=== PATIENT | female | born 1995 | race Caucasian/White ===

== ENCOUNTER 2017-03-13 18:08 | Emergency (ER) | payer BC ==
--- NOTE | 2017-03-13 18:31 | Emergency Department Record ---
History of Present Illness - General Chief complaint: Swelling of legs Stated complaint: SWELLING IN LEG Time Seen by Provider: 03/13/17 18:20 Source: Patient Mode of Arrival: Ambulatory Limitations: No limitations - History of Present Illness Initial comments: The patient is here due to developing R lower leg swelling and tingling yesterday that has mainly resolved with elevating the leg last night. She has had some abrasions to the dorsal foot due to working on a camper renovation recently. Today she has had some tingling and fullness to her R arm from the shoulder down but that also is now improving. There has been no weakness, fever , CP, SOB, LINDA, chills, AP, vomiting, or diarrhea. The patient has no recent travel and no risk factors for DVT. MD Complaint: Extremity swelling Onset/Timin -: Days(s) Location: Right, Arm, Lower Leg History of Same: No Radiation: None Quality: Burning Consistency: Intermittent Improves with: Elevation Worsens with: Walking, Weight bearing Associated Symptoms: Denies other symptoms - Related Data Previous Rx's Medication Instructions Recorded Naproxen [Naprosyn] 250 mg PO BID #14 tablet 03/13/17 Allergies Allergy/AdvReac Type Severity Reaction Status Date / Time No Known Drug Allergies Allergy Verified 03/13/17 18:19 Travel Screening - Travel/Exposure Within Last 30 Days Have you traveled within the last 30 days?: No Review of Systems Constitutional: Denies: Chills, Fever Eyes: Denies: Eye discharge ENT: Denies: Congestion Respiratory: Denies: Cough, Dyspnea Past Medical History - SOCIAL HISTORY Smoking Status: Never smoker Alcohol Use: None Drug Use: None - RESPIRATORY Hx Respiratory Disorders: No - CARDIOVASCULAR Hx Cardio Disorders: No - NEURO Hx Neuro Disorders: No - GI Hx GI Disorders: No - Hx Genitourinary Disorders: No - ENDOCRINE Hx Endocrine Disorders: No - MUSCULOSKELETAL Hx Musculoskeletal Disorders: No - PSYCH Hx Psych Problems: No - HEMATOLOGY/ONCOLOGY Hx Hematology/Oncology Disorders: No Family Medical History Any Significant Family History?: No Physical Exam - General General Appearance: Alert, Oriented x3, Cooperative, No acute distress - Head Head exam: Atraumatic, Normocephalic, Normal inspection - Eye Eye exam: Normal appearance, PERRL - ENT Throat exam: Normal inspection. negative: Tonsillar erythema, Tonsillar exudate - Neck Neck exam: Normal inspection, Full ROM. negative: Tenderness - Respiratory Respiratory exam: Normal lung sounds bilaterally. negative: Respiratory distress - Cardiovascular Cardiovascular Exam: Regular rate, Normal rhythm, Normal heart sounds - GI/Abdominal GI/Abdominal exam: Soft, Normal bowel sounds. negative: Tenderness - Extremities Extremities exam: Full ROM, Normal capillary refill, Tenderness (There is some tenderness to the R shoulder and proximal humerus laterally but no arm swelling , bruising, or erythema is appreciated.), Other (There is no arm or leg edema or erythema appreciated. The PT and DP pulses to the lower legs are normal and 2 + and equal bilaterally.). negative: Normal inspection (There are a few abrasions to the dorsal foot with trace edema to the R foot only. There is no swelling to the R leg.), Calf tenderness (There is no calf or anterior thigh tenderness.), Joint swelling, Pedal edema - Back Back exam: Reports: Normal inspection - Neurological Neurological exam: Alert, Normal gait, Oriented X3, Reflexes normal. negative: Abnormal gait, Altered, Motor sensory deficit (Motor and Sensory are 5/5 upper and lower extremities.) - Skin Skin exam: negative: Petechiae, Rash Course Vital Signs 03/13/17 18:15 Temperature 98.4 F Pulse Rate 90 Respiratory 16 Rate Blood Pressure 149/97 Pulse Ox 100 - Reevaluation(s) Reevaluation #1: After an hour in the ED the patient began to develop increasing R leg pain. The patient is mainly over the posterior thigh and does travel down the back of the leg. There is no back pain, weakness, or swelling. The patient and family are very concerned about a blood clot even though the patient has no risk factors for it. We will pursue a leg doppler. 03/13/17 20:00 03/13/17 21:15 Reevaluation #2: We did try to have the patient go to [facility] for an outpatient doppler test but have been getting a slight amount of resistance due to the tech at [facility] being very busy. Due to that fact we will treat the patient with a single dose of Lovenox and have her return to the ER at 8AM tomorrow morning for the Doppler test. 03/13/17 20:35 Medical Decision Making - Data Complexity MDM Data: Labs Ordered and/or Reviewed - Lab Data Result diagrams: 03/13/17 18:35 03/13/17 18:35 Disposition Disposition: Discharge Clinical Impression: Leg pain, right Disposition: Home, Self-Care Condition: (1) Good Instructions: Leg Pain (ED) Additional Instructions: Please use Naprosyn for pain and return to the ER at 8AM for recheck and to have the Doppler test performed at 9AM. Return to the ER sooner for any leg swelling, pain, fever, CP, or SOB. Prescriptions: Naproxen [Naprosyn] 250 mg PO BID #14 tablet Forms: Patient Portal Access Time of Disposition: 20:39 Quality - Quality Measures Quality Measures: N/A - Blood Pressure Screening View Details: Yes Blood Pressure Classification: Hypertensive Reading Systolic Measurement: 144 Diastolic Measurement: 94 Screening for High Blood Pressure: < Pre-Hypertensive BP, F/U Documented > [ G8950] Pre-Hypertensive Follow-up Interventions: Follow-up with rescreen every year.
[2017-03-13 18:46] LABS: BASO % 0.5 % (0-6); HEMATOCRIT 37.6 % (42.0-52.0); HEMOGLOBIN 12.6 gm/dl (14.0-18.0); MEAN CELL VOLUME 89.5 fl (81-97); MEAN CORPUSCULAR HGB CONC 33.5 g/dl (32-36); MEAN PLATELET VOLUME 11.6 fl (7.4-10.4); MONO % 7.5 % (0-9); PLATELET COUNT 168 K/uL (130-400); RED CELL DISTRIBUTION WIDTH 12.2 % (11.5-14.5); WHITE BLOOD COUNT W/O DIFF 6.4 K/uL (4.2-12.2)
[2017-03-13 18:48] LABS: HCG,QUALITATIVE URINE NEGATIVE (NEGATIVE)
[2017-03-13 18:51] LABS: URINE APPEARANCE CLEAR; URINE BILIRUBIN NEGATIVE (NEGATIVE); URINE BLOOD NEGATIVE (NEGATIVE); URINE COLOR YELLOW; URINE GLUCOSE (UA) NEGATIVE (NEGATIVE); URINE KETONE NEGATIVE (NEGATIVE); URINE LEUKOCYTE ESTERASE NEGATIVE (NEGATIVE); URINE NITRITE NEGATIVE (NEGATIVE); URINE PROTEIN NEGATIVE (NEGATIVE); URINE UROBILINOGEN 0.2 E.U./dL (0.20 - 1.00)
[2017-03-13 18:59] LABS: ALB/GLOB RATIO 1.6 (1.1-1.8); ALBUMIN 4.7 gm/dL (3.5-5.0); ALKALINE PHOSPHATASE 48 U/L (38-126); ALT/SGPT 33 U/L (21-72); AST/SGOT 19 U/L (17-59); BILIRUBIN,TOTAL 0.72 mg/dL (0.2-1.3); BLOOD UREA NITROGEN 7 mg/dL (9-20); CREATININE 0.7 mg/dL (0.66-1.25); EST GLOMERULAR FILTRATION RATE > 60 ml/min; GLUCOSE,RANDOM 102 mg/dL (70-110); TOTAL PROTEIN 7.6 gm/dL (6.3-8.2)
[2017-03-13 19:02] LABS: C-REACTIVE PROTEIN < 0.5 mg/dL (0.0-0.9)
[2017-03-13] MEDS ORDERED: KETOROLAC 30 MG/ML VIAL IM ONE (19:14)
[2017-03-13] MEDS ORDERED: ENOXAPARIN 100 MG/ML SYR SQ ONE (20:34)
== END 2017-03-13 20:50 | disposition home or self-care (01) ==
LOC: EDSEX 18:08 → ER 18:08
DX: M79.662 Pain in left lower leg (principal); R20.2 Paresthesia of skin
CPT/HCPCS: 99283; 96372; 99284; 85025; 86140; 80053; 81003; 81025; 85379; J1885; J1650

== ENCOUNTER 2017-03-14 08:28 | Emergency (ER) | payer BC ==
--- NOTE | 2017-03-14 08:48 | Emergency Department Record ---
History of Present Illness - General Chief Complaint: Recheck - Other Stated Complaint: U/S Time Seen by Provider: 03/14/17 08:39 Source: Patient Mode of arrival: Ambulatory Limitations: No limitations - History of Present Illness Initial Comments: pt returns to get doppler of leg. she was seen by dr bertrand in the night for leg pain and swelling after a long trip and dr bertrand had her come back for a doppler. she has no chest pain MD Complaint: Other Onset/Timin -: Days(s) Initial Visit For: Other Returns Today for: Other Symptoms Since Prior Visit: No new symptoms Associated Symptoms: None - Related Data Previous Rx's Medication Instructions Recorded Naproxen [Naprosyn] 250 mg PO BID #14 tablet 03/13/17 Cephalexin [Keflex] 500 mg PO QID #30 cap 03/14/17 Allergies Allergy/AdvReac Type Severity Reaction Status Date / Time No Known Drug Allergies Allergy Verified 03/14/17 08:32 Travel Screening - Travel/Exposure Within Last 30 Days Have you traveled within the last 30 days?: Yes Location Detail:: [place] - Travel/Exposure Within Last Year Have you traveled outside the [place] in the last year?: No - Additonal Travel Details Have you been exposed to anyone with a communicable illness?: No - Travel Symptoms Symptom Screening: None Review of Systems Reviewed: No additional complaints except as noted below Constitutional: Reports: As per HPI. Denies: Chills, Fever, Malaise, Night sweats, Weakness, Weight change Eyes: Reports: As per HPI. Denies: Eye discharge, Eye pain, Photophobia, Vision change ENT: Reports: As per HPI. Denies: Congestion, Dental pain, Ear pain, Epistaxis , Hearing loss, Throat pain Respiratory: Reports: As per HPI. Denies: Cough, Dyspnea, Hemoptysis, Stridor, Wheezes Cardiovascular: Reports: As per HPI. Denies: Arrhythmia, Chest pain, Dyspnea on exertion, Edema, Murmurs, Orthopnea, Palpitations, Paroxysmal nocturnal dyspnea, Rheumatic Fever, Syncope Endocrine: Reports: As per HPI. Denies: Fatigue, Heat or cold intolerance, Polydipsia, Polyuria Gastrointestinal: Reports: As per HPI. Denies: Abdominal pain, Constipation, Diarrhea, Hematemesis, Hematochezia, Melena, Nausea, Vomiting Genitourinary: Reports: As per HPI. Denies: Abnormal menses, Discharge, Dyspareunia, Dysuria, Frequency, Hematuria, Incontinence, Retention, Urgency Musculoskeletal: Reports: As per HPI. Denies: Arthralgia, Back pain, Gout, Joint swelling, Myalgia, Neck pain Skin: Reports: As per HPI. Denies: Bruising, Change in color, Change in hair/ nails, Lesions, Pruritus, Rash Neurological: Reports: As per HPI. Denies: Abnormal gait, Confusion, Headache, Numbness, Paresthesias, Seizure, Tingling, Tremors, Vertigo, Weakness Psychiatric: Reports: As per HPI. Denies: Anxiety, Auditory hallucinations, Depression, Homicidal thoughts, Suicidal thoughts, Visual hallucinations Hematological/Lymphatic: Reports: As per HPI. Denies: Anemia, Blood Clots, Easy bleeding, Easy bruising, Swollen glands Past Medical History - SOCIAL HISTORY Smoking Status: Never smoker Alcohol Use: None Drug Use: None - RESPIRATORY Hx Respiratory Disorders: No - CARDIOVASCULAR Hx Cardio Disorders: No - NEURO Hx Neuro Disorders: No - GI Hx GI Disorders: No - Hx Genitourinary Disorders: No - ENDOCRINE Hx Endocrine Disorders: No - MUSCULOSKELETAL Hx Musculoskeletal Disorders: No - PSYCH Hx Psych Problems: No - HEMATOLOGY/ONCOLOGY Hx Hematology/Oncology Disorders: No Family Medical History Any Significant Family History?: No Physical Exam - General General Appearance: Alert, Oriented x3, Cooperative, Mild distress - Head Head exam: Normal inspection - Eye Eye exam: Normal appearance, PERRL, EOMI Pupils: Normal accommodation - ENT ENT exam: Normal exam, Mucous membranes moist, Normal external ear exam, Normal orophraynx Ear exam: Normal external inspection. negative: External canal tenderness Nasal Exam: Normal inspection. negative: Discharge, Sinus tenderness Mouth exam: Normal external inspection, Tongue normal Teeth exam: Normal inspection. negative: Dental caries Throat exam: Normal inspection. negative: Tonsillar erythema, Tonsillar exudate - Neck Neck exam: Normal inspection, Full ROM. negative: Tenderness - Respiratory Respiratory exam: Normal lung sounds bilaterally. negative: Respiratory distress - Cardiovascular Cardiovascular Exam: Regular rate, Normal rhythm, Normal heart sounds - GI/Abdominal GI/Abdominal exam: Soft, Normal bowel sounds. negative: Tenderness - Rectal Rectal exam: Deferred - exam: Deferred - Extremities Extremities exam: Normal inspection, Calf tenderness, Full ROM, Normal capillary refill, Tenderness - Back Back exam: Reports: Normal inspection, Full ROM. Denies: Muscle spasm, Rash noted, Tenderness - Neurological Neurological exam: Alert, CN II-XII intact, Normal gait, Oriented X3 - Psychiatric Psychiatric exam: Normal affect, Normal mood - Skin Skin exam: Dry, Intact, Normal color, Warm Course Vital Signs 03/14/17 08:33 Temperature 99.3 F Pulse Rate 93 H Respiratory 16 Rate Blood Pressure 122/77 Pulse Ox 99 - Reevaluation(s) Reevaluation #1: 03/14/17 10:14 doppler shows no dvt but does show enlarged lymph node Disposition Disposition: Discharge Clinical Impression: Lymphadenopathy Disposition: Home, Self-Care Condition: (1) Good Instructions: Lymphadenopathy (ED) Additional Instructions: follow up with family doctor. return sooner if worse Prescriptions: Cephalexin [Keflex] 500 mg PO QID #30 cap Forms: Patient Portal Access Quality - Quality Measures Quality Measures: N/A - Blood Pressure Screening Blood Pressure Classification: Pre-Hypertensive BP Reading Systolic Measurement: 122 Diastolic Measurement: 77 Screening for High Blood Pressure: < Normal BP, F/U Not Required > [G8783] Normal BP Follow-up Interventions: No follow-up required
--- NOTE | 2017-03-14 13:24 | US VENOUS DOPPLER REPORT ---
EXAM: EMERGENCY VENOUS DOPPLER ULTRASOUND OF THE RIGHT LOWER EXTREMITY HISTORY: PAIN AND SWELLING RIGHT LEG. POSSIBLE DVT. TECHNIQUE: Venous Doppler ultrasound of the right lower extremity was performed with color flow and spectral analysis utilized. Compression and flow augmentation maneuvers were utilized in the thigh as well. Comparison: None. FINDINGS: No evidence of DVT in the right lower extremity. Flow is seen throughout the visualized venous structures from the level of the common femoral vein in the inguinal region down through the calf to the ankle with the anterior and posterior tibial veins and popliteal veins also visualized in the calf. Within the thigh and popliteal region there was also demonstrated compressibility and flow augmentation. While evaluating the venous anatomy, note was made of a single mildly prominent oval structure in the upper thigh measuring about 2.2 x 0.7 cm which is likely a mildly prominent lymph node, nonspecific in nature. IMPRESSION: 1. NO EVIDENCE OF DVT IN THE RIGHT LOWER EXTREMITY. 2. INCIDENTAL NOTE MADE OF A MILDLY PROMINENT LYMPH NODE IN THE UPPER RIGHT THIGH. JOB NUMBER: [id number] MTDD
== END 2017-03-14 10:29 | disposition home or self-care (01) ==
LOC: ER 08:28
DX: R59.0 Localized enlarged lymph nodes (principal)
CPT/HCPCS: 99283